=== PATIENT | male | born 1995 | race Caucasian/White ===

== ENCOUNTER 2020-01-20 12:01 | Emergency (ER) | payer MEDICAID ==
[~2020-01-20] VITALS: Ht 167.6 cm; Wt 132.0 kg
[~2020-01-20 12:01] MED LIST: NO HOME MEDS
[2020-01-20 12:22] VITALS: BP 127/84
[2020-01-20] MEDS ORDERED: IBUP-1984 PO (13:25)
== END 2020-01-20 13:43 | disposition home or self-care (01) ==
LOC: ER 12:02
DX: G56.01 Carpal tunnel syndrome, right upper limb (principal); Z79.899 Other long term (current) drug therapy
CPT/HCPCS: 29125; 99283